=== PATIENT | female | born 1985 | race Two or more races ===

== ENCOUNTER 2018-10-31 10:34 | Outpatient (CLI) | payer OTHER | END 2018-10-31 10:47 | disposition home or self-care (01) | LOC: SONOGRAMA 10:34 | DX: N93.8 Other specified abnormal uterine and vaginal bleeding (principal) ==

== ENCOUNTER 2018-10-31 12:17 | Outpatient (CLI) | payer OTHER | END 2018-10-31 15:00 | disposition home or self-care (01) | LOC: LAB 12:17 | DX: E03.8 Other specified hypothyroidism (principal); E78.49 Other hyperlipidemia ==

== ENCOUNTER 2018-11-27 10:41 | Outpatient (CLI) | payer OTHER | END 2018-11-27 17:00 | disposition home or self-care (01) | LOC: RX STUDY 10:41 | DX: K44.9 Diaphragmatic hernia without obstruction or gangrene (principal) ==